=== PATIENT | male | born 1950 | race Caucasian/White ===

== ENCOUNTER 2023-03-30 08:00 | Outpatient (CLI) | payer MEDICARE, OTHER | END 2023-03-30 23:59 | disposition home or self-care (01) | LOC: LAB 08:00 | PROVIDERS: ATTEND Family Medicine | DX: R31.9 Hematuria, unspecified (principal) | CPT/HCPCS: 36415; 80048; 85025; 87086 ==

== ENCOUNTER 2023-03-30 12:00 | Outpatient (CLI) | payer MEDICARE, OTHER ==
[2023-03-30 17:57] LABS: BASOPHILS # (AUTO) 0.1 10^3/uL (0.0-0.1); BASOPHILS % (AUTO) 1.4 %; EOSINOPHILS # (AUTO) 0.2 10^3/uL (0.0-0.7); EOSINOPHILS % (AUTO) 5.1 %; HCT - HEMATOCRIT 42.6 % (42.0-52.0); HGB - HEMOGLOBIN 14.6 g/dL (14.0-18.0); MEAN CORPUSCULAR HEMOGLOBIN 31.5 pg (27.0-31.0); MEAN CORPUSCULAR HGB CONC 34.3 g/dL (32.0-36.0); MEAN CORPUSCULAR VOLUME 91.8 fL (80.0-94.0); MONOCYTES # (AUTO) 0.4 10^3/uL (0.0-1.0); MONOCYTES % (AUTO) 11.6 %; NEUTROPHILS # (AUTO) 1.9 10^3/uL (1.5-6.6); NEUTROPHILS % (AUTO) 52.6 %; PLT - PLATELET COUNT 269 10^3/uL (130-450); RED BLOOD COUNT 4.64 10^6/uL (4.70-6.10); WHITE BLOOD COUNT 3.5 x10^3/uL (4.8-10.8)
[2023-03-30 18:05] LABS: CALCIUM 9.2 mg/dL (8.5-10.3); POTASSIUM 4.3 mmol/L (3.5-4.5)
== END 2023-03-30 12:15 | disposition home or self-care (01) ==
LOC: LAB.N 12:00
PROVIDERS: ATTEND Family Medicine
DX: R31.9 Hematuria, unspecified (principal)
CPT/HCPCS: 36415; 80048; 85025

== ENCOUNTER 2023-04-06 14:35 | Outpatient (CLI) | payer MEDICARE, OTHER ==
[2023-04-06] MEDS ORDERED: iohexoL-300 100 ML VIAL ONE (15:07)
[2023-04-06] MEDS: iohexoL-300 100 ML VIAL IVP ONE (16:04)
--- NOTE | 2023-04-06 17:22 | CT Report ---
PROCEDURE: IVP INDICATIONS: BLOOD IN URINE CONTRAST: 140mL Omni 300 TECHNIQUE: A [address] of the abdomen and pelvis was performed. Non-contrast and contrast images were recorded and evaluated at appropriate window settings. Images were recorded and evaluated at appropriate windo w settings. Reformats: coronal and sagittal. For radiation dose reduction, the following was used: au tomated exposure control, adjustment of convex left scoliosis. 3 interval casting with improved align ment at the tibia and fibula fractures. MA and/or kV according to patient size. COMPARISON: None. FINDINGS: Image quality: Diagnostic. Urinary system: Both kidneys are normal in size. No hydronephrosis or nephrolithiasis on pre-contras t images. No solid masses or complex cysts which require follow up. The opacified renal calyces and ureters appear normal, without filling defect. Bladder wall thickness is normal, accounting for unde rdistention. No calcified bladder stones. Polypoidal mass along the right lateral bladder wall measur ing 3.4 x 2.3 cm. Questionable extension beyond the bladder wall along the posterior margin (series 2 0, image 118).. OTHER Lung bases and heart: Cardiomegaly. Calcified granuloma of the right lower lobe. Liver: Hepatic steatosis. Gallbladder and biliary tree: No radiopaque stones or wall thickening. No biliary dilation. Spleen: No splenomegaly. Pancreas: No pancreatic ductal dilation. Adrenals: No adrenal nodule. Bowel and peritoneum: No bowel distension. No pathologic free fluid. Diverticulosis without evidence of diverticulitis. Abdominal Lymph nodes: No central or retroperitoneal adenopathy. Vessels: Unremarkable. Reproductive organs: Unremarkable. Pelvic Lymph nodes: Unremarkable. Bones: No aggressive osseous abnormality. Bone islands of the right hemipelvis. Right sacroiliac and pubic symphysis arthrodesis. Other: Small right inguinal hernia containing fat. IMPRESSION: Polypoidal mass along the right lateral bladder wall measuring 3.4 x 2.3 cm, with questionable extens ion beyond the bladder wall. No pelvic adenopathy. Reviewed by: Joon Osborne MD on 04/06/2023 5:21 PM PST Approved by: Joon Osborne MD on 04/06/2023 5:21 PM PST Station ID: [id number]
== END 2023-04-06 14:36 | disposition home or self-care (01) ==
LOC: DI 14:35
PROVIDERS: ATTEND Urology
DX: R31.29 Other microscopic hematuria (principal); N32.89 Other specified disorders of bladder
CPT/HCPCS: 74178; Q9967

== ENCOUNTER 2023-04-11 11:55 | Day surgery (SDC) | payer MEDICARE, OTHER ==
[2023-04-11] MEDS ORDERED: ceFAZolin 2 GM VIAL ONE (12:08)
[2023-04-11] MEDS: LACTATED RINGERS 1,000 ML IV ONE ×3 (12:15→16:10)
[2023-04-11] MEDS ORDERED: LIDOCAINE 2% URO-JET 5 ML SYRINGE UR ONE (14:20)
[2023-04-11] MEDS ORDERED: PROPOFOL 200 MG/20 ML VIAL IVP ONE (14:21)
[2023-04-11] MEDS ORDERED: ROCURONIUM 50 MG/5 ML VIAL ONE (14:21)
[2023-04-11] MEDS ORDERED: fentaNYL 100 MCG/2 ML VIAL ONE ×2 (14:21→16:03)
[2023-04-11] MEDS ORDERED: LIDOCAINE-PF 2% 10 ML AMP SUBQ ONE (14:21)
[2023-04-11] MEDS ORDERED: ONDANSETRON 4 MG/2 ML VIAL ONE (14:21)
--- NOTE | 2023-04-11 14:22 | ANESTHESIA ---
Pre-Anesthesia VS, & Labs - Diagnosis hematuria - Procedure TURBT Height: 5 ft 8 in Weight (kg): 78 kg Body Mass Index: 26.1 BMI Classification: Overweight - NPO >8 hours Home Medications and Allergies Home Medications: Ambulatory Orders Bacillus Coagulans [Probiotic] 1 tab PO DAILY 04/11/23 Glucos Sul 2Kcl/MSM/Chond/C/Mn [Glucosamine Chondroitin Cap] 1 tab PO DAILY 04/11/23 Tadalafil [Cialis] 5 mg PO PRN PRN 04/11/23 Telmisartan 20 mg PO DAILY 04/11/23 amLODIPine [Norvasc] 10 mg PO DAILY 04/11/23 Bacillus Coagulans [Probiotic] 1 tab PO DAILY 04/11/23 Glucos Sul 2Kcl/MSM/Chond/C/Mn [Glucosamine Chondroitin Cap] 1 tab PO DAILY 04/11/23 Tadalafil [Cialis] 5 mg PO PRN PRN 04/11/23 Telmisartan 20 mg PO DAILY 04/11/23 amLODIPine [Norvasc] 10 mg PO DAILY 04/11/23 Allergies/Adverse Reactions: Allergies Allergy/AdvReac Type Severity Reaction Status Date / Time No Known Drug Allergies Allergy Verified 04/11/23 12:20 Anes History & Medical History - Anesthetic History Anesthesia Complications: reports: No previous complications - Medical History Cardiovascular: reports: Hypertension Pulmonary: reports: Sleep apnea, CPAP use Gastrointestinal: reports: None Urinary: reports: Retention, Other Musculoskeletal: reports: None Endocrine/Autoimmune: reports: None Skin: reports: None Smoking Status: Never smoker Psychosocial: reports: Alcohol (rare social), Cannabis (occasionally) History of Cancer?: No Exam General: Alert, Oriented x3 Dental: WNL Neck Mobility: Normal Mallampati classification: II Thyromental Distance: greater than 6 cm Respiratory: Lungs clear Cardiovascular: Regular rate, Normal S1, Normal S2 Plan Anesthesia Type: Total IV Consent for Procedure(s) Verified and Reviewed: Yes Code Status: Attempt Resuscitation ASA classification: 2-Mild systemic disease Is this case an emergency?: No
[2023-04-11] MEDS ORDERED: ONDANSETRON 4 MG/2 ML VIAL IVP PRN ×2 (14:25→15:28)
[2023-04-11] MEDS ORDERED: NALOXONE 0.4 MG/ML VIAL IVP PRN (14:25)
[2023-04-11] MEDS ORDERED: MORPHINE 2 MG/ML CARPUJECT IVP PRN (14:25)
[2023-04-11] MEDS ORDERED: ePHEDrine 50 MG/ML VIAL IVP PRN (14:25)
[2023-04-11] MEDS ORDERED: HYDROmorphone 0.5 MG/0.5 ML SYRINGE IVP PRN (14:25)
[2023-04-11] MEDS ORDERED: ATROPINE ABBOJECT 1 MG/10 ML SYRINGE IVP PRN (14:25)
[2023-04-11] MEDS ORDERED: METOCLOPRAMIDE 10 MG/2 ML VIAL IVP PRN (14:25)
[2023-04-11] MEDS: LIDOCAINE 2% URO-JET 5 ML SYRINGE UR ONE (14:27)
[2023-04-11] MEDS: LIDOCAINE-MPF 1% 2 ML AMP SUBQ ONE (14:27)
[2023-04-11] MEDS ORDERED: MIDAZOLAM 2 MG/2 ML VIAL ONE (14:48)
[2023-04-11] MEDS ORDERED: SUGAMMADEX 200 MG/2 ML VIAL IVP ONE (15:24)
--- NOTE | 2023-04-11 15:34 | Discharge Plan ---
Discharge Plan Problem Reviewed?: Yes Disposition: Home, Self Care Condition: Good Prescriptions: Docusate Sodium 100Mg Capsule [Colace 100Mg Capsule] 100 mg PO DAILY #10 cap HYDROcod/ACETAM 5/325 [[place] 5/325] 1 tab PO Q4H PRN #12 tablet PRN Reason: Pain oxyBUTYnin chloride [Oxybutynin Chloride ER] 5 mg PO DAILY #14 tab Diet: Regular Activity Restrictions: Additional Comments (as instructed) Shower Restrictions: No Driving Restrictions: No Instruction Topics: Transureth Bladder Tumor Resect Dc, Catheter Bag Urinary Empty Clean, Leg Bag Care Dc Additional Instructions or Follow Up instructions: Your catheter should remain in place until you see Dr. Andres in the office next week. No Smoking: If you smoke, Please STOP! Call for help. Follow-up with: Srinivasan Andres MD [Provider Admit Priv/Credential] -
--- NOTE | 2023-04-11 15:42 | OPERATIVE REPORT ---
Operative Report - General Procedure Date: 04/11/23 Planned Procedure: Cystoscopy, transurethral resection of bladder tumor Pre-Op Diagnosis: Bladder mass Procedure Performed: Cystoscopy, transurethral resection of bladder tumor >5cm Post Op Diagnosis: Bladder mass - Procedure Note Primary Surgeon: Dmitry Anesthesia Provider: BIANCA Holland Anesthesia Technique: General ET tube Pathology: bladder mass Findings: Large bladder mass about 5 cm in size on the right lateral wall 2 cm lateral to the right ureteral orifice Complications: none - Other Other Information/Narrative: After informed sent was obtained the patient was brought to the OR and laid supine position. The patient was anesthetized per anesthesia protocols and prepped and draped in usual sterile fashion. He is placed in dorsolithotomy p osition. A formal timeout was performed reconfirming the patient and procedure. A 26 [place] tightrope was [place] ease into urinary bladder bladder inspected and full he is noted to have a 5 cm papillary mass arising from the right lateral wall just about 2 cm lateral to ureteral orifice. The ureteral orifice was not involved. Using loop electrocautery on the bipolar setting we resected this mas s in its entirety. Muscle appeared to be adequately sampled. He spot cautery was used for hemostasis. The bladder chips were sent for analysis. A Uro-Jet was placed and 22 Paraguayan three-way Subramanian catheter was placed and he was put on gentle CBI. He was then reversed of anesthesia and brought to PACU without further incident. Counts were correct. We will monitor him in the PACU for short time to see if he can go home versus admit overnight for gentle CBI. He will keep his catheter in place for least 1 week.
[2023-04-11] MEDS: fentaNYL 100 MCG/2 ML VIAL IVP PRN (16:09)
--- NOTE | 2023-04-11 16:22 | ANESTHESIA POST OP EVALUATION ---
Anesthesia Post Eval - Post Anesthesia Eval Vitals: Last Vital Signs Temp 37.0 C 04/11/23 16:15 Pulse 68 04/11/23 16:15 Resp 10 L 04/11/23 16:15 BP 155/74 H 04/11/23 16:15 Pulse Ox 99 04/11/23 16:15 O2 Flow Rate CV Function Including HR & BP: Stable Pain Control: Satisfactory Nausea & Vomiting: Negative Mental Status: Baseline Respiratory Status: Airway Patent Hydration Status: Satisfactory Anesthesia Complications: None
[2023-04-11] MEDS: LACTATED RINGERS 1,000 ML IV SCH (16:55)
[2023-04-11] MEDS: HYDROcod/ACETAM 5/325 MG TABLET PO PRN (17:02)
[2023-04-11] MEDS: cephALEXin 250 MG CAPSULE PO SCH (23:49)
[2023-04-12 06:02] LABS: HCT - HEMATOCRIT 40.4 % (42.0-52.0); HGB - HEMOGLOBIN 14.1 g/dL (14.0-18.0); MEAN CORPUSCULAR HEMOGLOBIN 32.4 pg (27.0-31.0); MEAN CORPUSCULAR HGB CONC 34.9 g/dL (32.0-36.0); MEAN CORPUSCULAR VOLUME 92.9 fL (80.0-94.0); MEAN PLATELET VOLUME 9.6 fL (7.4-11.4); RED BLOOD COUNT 4.35 10^6/uL (4.70-6.10); RED CELL DISTRIBUTION WIDTH 11.7 % (12.0-15.0); WHITE BLOOD COUNT 5.6 x10^3/uL (4.8-10.8)
[2023-04-12 06:30] LABS: CALCIUM 8.4 mg/dL (8.5-10.3); CREATININE 0.8 mg/dL (0.6-1.3); POTASSIUM 4.4 mmol/L (3.5-4.5)
--- NOTE | 2023-04-12 08:59 | PROVIDER PROGRESS NOTE ---
Subjective - General Procedure Date: 04/11/23 Post Op Days: 1 Procedure Performed: TURBT - Review of Systems General: positive: Other (Had a lot of issues with clotting overnight. Required multiple irrigations. At 8 AM this morning the catheter stopped draining completely. He had a lot of distention pain.) Genitourinary: positive: Other (Catheter stopped draining this morning. I was at bedside at 830 and he is balloon was clearly in the prostate. I took down his balloon and advanced the catheter. There was an immediate efflux of david red opaque urine with no clots. This improved his symptoms tremendously. He was irrigated the) Objective - Patient Data Reviewed Vital Signs: Yes Vital Signs: Vital Signs x48h Temp Pulse Resp BP Pulse Ox 04/12/23 06:52 36.9 C 82 16 165/93 H 95 04/12/23 02:36 36.7 C 73 16 136/86 H 93 Weight: Weight 04/10/23 04/11/23 04/12/23 23:59 23:59 23:59 Weight (kg) 78 kg Intake & Output: Intake and Output Totals x24h 04/10/23 04/11/23 04/12/23 23:59 23:59 23:59 Intake Total 50056 58017 Output Total 1161311 84018 Balance -1972 -8546 - Lab Results Lab Results: 04/12/23 05:20 04/12/23 05:20 Other Lab Results: Lab Results x24hrs 04/12/23 04/12/23 Range/Units 05:20 05:20 WBC 5.6 (4.8-10.8) x10^3/uL RBC 4.35 L (4.70-6.10) 10^6/uL Hgb 14.1 (14.0-18.0) g/dL Hct 40.4 L (42.0-52.0) % MCV 92.9 (80.0-94.0) fL MCH 32.4 H (27.0-31.0) pg MCHC 34.9 (32.0-36.0) g/dL RDW 11.7 L (12.0-15.0) % Plt Count 240 (130-450) 10^3/uL MPV 9.6 (7.4-11.4) fL Sodium 138 (135-145) mmol/L Potassium 4.4 (3.5-4.5) mmol/L Chloride 104 (101-111) mmol/L Carbon Dioxide 25 (21-32) mmol/L Anion Gap 9.0 (6-13) BUN 8 (6-20) mg/dL Creatinine 0.8 (0.6-1.3) mg/dL Estimated GFR (MDRD) 94 (>89) Glucose 112 H (74-104) mg/dL Calcium 8.4 L (8.5-10.3) mg/dL - Current Medications Current Medications: Current Medications Generic Name Dose Route Start Last Admin Trade Name Freq PRN Reason Stop Dose Admin Hydrocodone Bitart/Acetaminophen 1 tab 04/11/23 15:28 04/12/23 08:27 Hydrocod/Acetam 5/325 Mg Tablet PO 1 tab Q4HR PRN Administration Moderate Pain (Level 4-6) Cephalexin 500 mg 04/12/23 00:00 04/12/23 06:02 Cephalexin 250 Mg Capsule PO 500 mg Q6HR LATOYA Administration - Physical Exam General Appearance: positive: No acute distress Respiratory: positive: Breath sounds nml Cardiovascular: positive: Regular rate & rhythm Abdomen: positive: Other (after efflux, soft nt abdomen. 22f [address] way catheter with red david opaque urine on cbi) ABX Reporting Has patient been on IV antibiotics over the past 48 hours?: No Impression/Plan - Problem List Problem List: Brady is here postop day 1 after his TURBT. He had a large resection and deep resection. I suspect his tumor is invading through the muscle into the perivesicular fat. After initially a fairly dry appearing CBI, he darken significantly this morning likely related to the catheter being displaced into the prostate. I will put him back on CBI for now and monitor him in a few hours. I will make him n.p.o. for now. I have added him on as a cystoscopy clot evacuation and fulguration in case it still continues to appear bloody. I think this is an optimal plan rather than just continue on CBI for a few days which would also likely dry him up. Patient states understanding and consents to the above plan. We did discuss the risks, benefits, alternatives to this. Specific risks of continued bleeding, infection, damage adjacent structures, need for additional procedures were discussed.
[2023-04-12] MEDS: amLODIPine 5 MG TABLET PO SCH (09:02)
--- NOTE | 2023-04-12 10:54 | PHARMACY PROGRESS NOTE ---
- Best Possible Medication History Admit Date and Time: Processed by: Nursing Medication History completed: Yes Secondary Source(s): Insurance records As the person ultimately responsible for medication therapy, providers are able to order a medication from an existing home medication list in [facility] via the "Reconcile Routine" prior to Confirmation of that medication by clerical and office support workers. Such practice is discouraged except when the physician, in their clinical judgme nt, deems that a medical need exists for a medication without regard to previous use.
[2023-04-12] MEDS ORDERED: LIDOCAINE 2% URO-JET 5 ML SYRINGE UR ONE (11:38)
[2023-04-12] MEDS ORDERED: fentaNYL 100 MCG/2 ML VIAL ONE (12:20)
[2023-04-12] MEDS ORDERED: LIDOCAINE-PF 2% 10 ML AMP SUBQ ONE (12:20)
[2023-04-12] MEDS ORDERED: ROCURONIUM 50 MG/5 ML VIAL ONE (12:20)
[2023-04-12] MEDS ORDERED: ONDANSETRON 4 MG/2 ML VIAL ONE (12:20)
[2023-04-12] MEDS ORDERED: MIDAZOLAM 2 MG/2 ML VIAL ONE (12:20)
[2023-04-12] MEDS ORDERED: PROPOFOL 200 MG/20 ML VIAL IVP ONE (12:20)
[2023-04-12] MEDS ORDERED: DEXAMETHASONE 4 MG/ML VIAL ONE (12:47)
[2023-04-12] MEDS ORDERED: ONDANSETRON 4 MG/2 ML VIAL IVP PRN (12:58)
[2023-04-12] MEDS ORDERED: METOCLOPRAMIDE 10 MG/2 ML VIAL IVP PRN (12:58)
[2023-04-12] MEDS ORDERED: ePHEDrine 50 MG/ML VIAL IVP PRN (12:58)
[2023-04-12] MEDS ORDERED: NALOXONE 0.4 MG/ML VIAL IVP PRN (12:58)
[2023-04-12] MEDS ORDERED: ATROPINE ABBOJECT 1 MG/10 ML SYRINGE IVP PRN (12:58)
[2023-04-12] MEDS ORDERED: fentaNYL 100 MCG/2 ML VIAL IVP PRN (12:58)
[2023-04-12] MEDS ORDERED: MORPHINE 2 MG/ML CARPUJECT IVP PRN (12:58)
[2023-04-12] MEDS ORDERED: HYDROmorphone 0.5 MG/0.5 ML SYRINGE IVP PRN (12:58)
[2023-04-12] MEDS ORDERED: SUGAMMADEX 200 MG/2 ML VIAL IVP ONE (12:59)
[2023-04-12] MEDS ORDERED: LACTATED RINGERS 1,000 ML IV SCH (13:00)
--- NOTE | 2023-04-12 13:03 | ANESTHESIA ---
Pre-Anesthesia VS, & Labs - Diagnosis s/p turbt, bleeding, bladder - Procedure cysto with fulguration Vital Signs: Temp Pulse Resp BP Pulse Ox O2 Flow Rate 36.9 C 82 16 165/93 H 95 04/12/23 06:52 04/12/23 06:52 04/12/23 06:52 04/12/23 06:52 04/12/23 06:52 Height: 5 ft 8 in Weight (kg): 78 kg Body Mass Index: 26.1 BMI Classification: Overweight - NPO >8 hours - Lab Results Current Lab Results: Laboratory Tests 04/12/23 05:20: Sodium 138, Potassium 4.4, Chloride 104, Carbon Dioxide 25, Anion Gap 9.0, BUN 8, Creatinine 0.8, Estimated GFR (MDRD) 94, Glucose 112 H, Calcium 8.4 L 04/12/23 05:20: WBC 5.6, RBC 4.35 L, Hgb 14.1, Hct 40.4 L, MCV 92.9, MCH 32.4 H, MCHC 34.9, RDW 11.7 L, Plt Count 240, MPV 9.6 Fish Bones: 04/12/23 05:20 04/12/23 05:20 Home Medications and Allergies Home Medications: Ambulatory Orders Bacillus Coagulans [Probiotic] 1 tab PO DAILY 04/11/23 Glucos Sul 2Kcl/MSM/Chond/C/Mn [Glucosamine Chondroitin Cap] 1 tab PO DAILY 04/11/23 Tadalafil [Cialis] 5 mg PO PRN PRN 04/11/23 Telmisartan 20 mg PO DAILY 04/11/23 amLODIPine [Norvasc] 10 mg PO DAILY 04/11/23 Active Medications Hydrocodone Bitart/Acetaminophen (Hydrocod/Acetam 5/325 Mg Tablet) 1 tab PO Q4HR PRN PRN Reason: Moderate Pain (Level 4-6) Last Admin: 04/12/23 08:27 Dose: 1 tab Amlodipine Besylate (Amlodipine 5 Mg Tablet) 10 mg PO DAILY LATOYA Atropine Sulfate (Atropine Abboject 1 Mg/10 Ml Syringe) 0.5 mg IVP Q5M PRN PRN Reason: Bradycardia Stop: 04/13/23 12:58 Cephalexin (Cephalexin 250 Mg Capsule) 500 mg PO Q6HR LATOYA Last Admin: 04/12/23 06:02 Dose: 500 mg Ephedrine Sulfate (Ephedrine 50 Mg/Ml Vial) 10 mg IVP Q5M PRN PRN Reason: HYPOTENSION Stop: 04/13/23 12:58 Fentanyl (Fentanyl 100 Mcg/2 Ml Vial) 25 - 50 mcg IVP Q5M PRN PRN Reason: BREAKTHROUGH PAIN (2nd Choice) Stop: 04/13/23 12:58 Hydromorphone HCl (Hydromorphone 0.5 Mg/0.5 Ml Syringe) 0.2 - 0.6 mg IVP Q5M PRN PRN Reason: PAIN (First Choice) Stop: 04/13/23 12:58 Lactated Ringer's (Lr) 1,000 mls @ 100 mls/hr IV .Q10H LATOYA Stop: 04/12/23 22:59 Metoclopramide HCl (Metoclopramide 10 Mg/2 Ml Vial) 10 mg IVP Q6HR PRN PRN Reason: N/V not relieved by Zofran Morphine Sulfate (Morphine 2 Mg/Ml Carpuject) 2 - 4 mg IVP Q5M PRN PRN Reason: PAIN (3rd Choice) Stop: 04/13/23 12:58 Naloxone HCl (Naloxone 0.4 Mg/Ml Vial) 0.1 mg IVP Q2M PRN PRN Reason: RESP RATE <8 Stop: 04/13/23 12:58 Ondansetron HCl (Ondansetron 4 Mg/2 Ml Vial) 4 mg IVP Q6HR PRN PRN Reason: Nausea / Vomiting Ondansetron HCl (Ondansetron 4 Mg/2 Ml Vial) 4 mg IVP ONCE PRN PRN Reason: N/V (First Choice) Stop: 04/13/23 12:58 Bacillus Coagulans [Probiotic] 1 tab PO DAILY 04/11/23 Glucos Sul 2Kcl/MSM/Chond/C/Mn [Glucosamine Chondroitin Cap] 1 tab PO DAILY 04/11/23 Tadalafil [Cialis] 5 mg PO PRN PRN 04/11/23 Telmisartan 20 mg PO DAILY 04/11/23 amLODIPine [Norvasc] 10 mg PO DAILY 04/11/23 Allergies/Adverse Reactions: Allergies Allergy/AdvReac Type Severity Reaction Status Date / Time No Known Drug Allergies Allergy Verified 04/11/23 12:20 Anes History & Medical History - Anesthetic History Anesthesia Complications: reports: No previous complications Family history of Anesthesia Complications: Denies Family history of Malignant Hyperthermia: Denies - Medical History Cardiovascular: reports: Hypertension Pulmonary: reports: Sleep apnea, CPAP use Gastrointestinal: reports: None Urinary: reports: Retention, Other Musculoskeletal: reports: None Endocrine/Autoimmune: reports: None Skin: reports: None Smoking Status: Never smoker Psychosocial: reports: Alcohol (rare social), Cannabis (occasionally) Exam General: Alert, Oriented x3, Cooperative Dental: WNL Mouth Openin Fingerbreadth Neck Mobility: Normal (glidescope intubation required for turbt) Mallampati classification: II Thyromental Distance: 4-6 cm Cardiovascular: Regular rate Neurological: Normal speech Mental/Cognitive Status: Alert/Oriented X3, Normal for patient Cognitive Status: Within normal limits Plan Anesthesia Type: General Consent for Procedure(s) Verified and Reviewed: Yes Code Status: Attempt Resuscitation ASA classification: 2-Mild systemic disease Is this case an emergency?: Yes
[2023-04-12] MEDS: LIDOCAINE 2% URO-JET 5 ML SYRINGE UR ONE (13:09)
--- NOTE | 2023-04-12 13:41 | OPERATIVE REPORT ---
Operative Report - General Procedure Date: 04/12/23 Planned Procedure: Cystoscopy, fulguration of bleeding areas Pre-Op Diagnosis: hematuria Procedure Performed: cystoscopy, clot evacuation, fulguration of bleeding areas Post Op Diagnosis: hematuria - Procedure Note Primary Surgeon: Dmitry Anesthesia Provider: BIANCA spangler Anesthesia Technique: General ET tube Pathology: none Estimated Blood Loss (mL): 20 Indications: Persistent hematuria despite continuous bladder irrigation after TURBT on April 11 Findings: Large bladder clot approximately 200 to 300 cc. No obvious bleeding area. Old resection site appeared intact and any slightly red areas or erythematous areas were cauterized. Put back on CBI Complications: none - Other Other Information/Narrative: After informed consent was obtained the patient was brought to the OR and laid the supine position. At that point time the patient was anesthetized per anesthesia protocols and his old catheter was removed. He was then placed in dorsolithotomy position and prepped and draped in usual sterile fashion. A formal timeout was performed reconfirming the patient and procedure. A 26 Mongolian resectoscope was advanced easily into urinary bladder. He had a large bladder clot in the bladder. Using Ellik evacuator we evacuated about 300 cc of old dark clot. The bladder was then inspected and full and his old resection site on the right lateral bladder wall appeared intact. There were no significant bleeding areas at all. Using loop electrocautery and the bipolar setting we cauterized this old resection site specifically emphasizing the edges and any areas where erythema was seen or perhaps a red area. We then emptied and filled the bladder multiple times to see if there were any bleeding but no bleeding was seen. We then placed new 22 Mongolian three-way Subramanian catheter after placing a Uro-Jet and put him back on CBI. This concluded the procedure. Patient tolerated procedure well. All counts were correct. He will stay overnight for further monitoring
[2023-04-12] MEDS: LACTATED RINGERS 1,000 ML IV ONE (13:42)
[2023-04-12] MEDS: SOLIFENACIN SUCCINATE 5 MG TABLET PO SCH (16:18)
--- NOTE | 2023-04-12 17:54 | ANESTHESIA POST OP EVALUATION ---
Anesthesia Post Eval - Post Anesthesia Eval Vitals: Last Vital Signs Temp 36.5 C 04/12/23 15:10 Pulse 87 04/12/23 15:10 Resp 14 04/12/23 15:10 BP 127/71 04/12/23 15:10 Pulse Ox 93 04/12/23 15:10 O2 Flow Rate CV Function Including HR & BP: Stable Pain Control: Satisfactory Nausea & Vomiting: Negative Mental Status: Baseline Respiratory Status: Airway Patent Hydration Status: Satisfactory Anesthesia Complications: None
[2023-04-13 06:03] LABS: HCT - HEMATOCRIT 35.1 % (42.0-52.0); HGB - HEMOGLOBIN 11.8 g/dL (14.0-18.0); MEAN CORPUSCULAR HEMOGLOBIN 31.4 pg (27.0-31.0); MEAN CORPUSCULAR HGB CONC 33.6 g/dL (32.0-36.0); MEAN CORPUSCULAR VOLUME 93.4 fL (80.0-94.0); RED BLOOD COUNT 3.76 10^6/uL (4.70-6.10); RED CELL DISTRIBUTION WIDTH 11.6 % (12.0-15.0)
[2023-04-13 06:22] LABS: CALCIUM 8.1 mg/dL (8.5-10.3); CREATININE 0.9 mg/dL (0.6-1.3); POTASSIUM 3.9 mmol/L (3.5-4.5)
--- NOTE | 2023-04-13 08:25 | PROVIDER PROGRESS NOTE ---
Subjective - General Procedure Date: 04/12/23 Post Op Days: 1 Procedure Performed: TURBT 04/11/23, clot evac 04/12/23 - Review of Systems Drain Type: vickers Drain Output Description: clear General: positive: No symptoms, Other Genitourinary: positive: Other (Catheter stopped draining this morning. I was at bedside at 830 and he is balloon was clearly in the prostate. I took down his balloon and advanced the catheter. There was an immediate efflux of david red opaque urine with no clots. This improved his symptoms tremendously. He was irrigated the) - Other Other Information/Narrative: He did well overnight. No clot issues. He was evaluated at 8 PM last night and his urine was clear on slow effluent Objective - Patient Data Reviewed Vital Signs: Yes Vital Signs: Vital Signs x48h Temp Pulse Resp BP Pulse Ox 04/13/23 06:40 36.7 C 65 18 141/66 H 98 04/13/23 02:17 36.9 C 72 18 133/61 H 93 Weight: Weight 04/11/23 04/12/23 04/13/23 23:59 23:59 23:59 Weight (kg) 78 kg 78 kg Intake & Output: Intake and Output Totals x24h 04/11/23 04/12/23 04/13/23 23:59 23:59 23:59 Intake Total 68471 85382 4000 Output Total 56108 70698 5250 Balance -4380 -7250 -1250 - Lab Results Lab Results: 04/13/23 05:11 04/13/23 05:11 Other Lab Results: Lab Results x24hrs 04/13/23 04/13/23 Range/Units 05:11 05:11 WBC 6.0 (4.8-10.8) x10^3/uL RBC 3.76 L (4.70-6.10) 10^6/uL Hgb 11.8 L (14.0-18.0) g/dL Hct 35.1 L (42.0-52.0) % MCV 93.4 (80.0-94.0) fL MCH 31.4 H (27.0-31.0) pg MCHC 33.6 (32.0-36.0) g/dL RDW 11.6 L (12.0-15.0) % Plt Count 262 (130-450) 10^3/uL MPV 9.0 (7.4-11.4) fL Sodium 137 (135-145) mmol/L Potassium 3.9 (3.5-4.5) mmol/L Chloride 106 (101-111) mmol/L Carbon Dioxide 27 (21-32) mmol/L Anion Gap 4.0 L (6-13) BUN 12 (6-20) mg/dL Creatinine 0.9 (0.6-1.3) mg/dL Estimated GFR (MDRD) 82 L (>89) Glucose 112 H (74-104) mg/dL Calcium 8.1 L (8.5-10.3) mg/dL - Current Medications Current Medications: Current Medications Generic Name Dose Route Start Last Admin Trade Name Freq PRN Reason Stop Dose Admin Hydrocodone Bitart/Acetaminophen 1 tab 04/11/23 15:28 04/12/23 22:09 Hydrocod/Acetam 5/325 Mg Tablet PO 1 tab Q4HR PRN Administration Moderate Pain (Level 4-6) Amlodipine Besylate 10 mg 04/12/23 09:00 04/12/23 09:02 Amlodipine 5 Mg Tablet PO 10 mg DAILY LATOYA Administration Cephalexin 500 mg 04/12/23 00:00 04/13/23 05:45 Cephalexin 250 Mg Capsule PO 500 mg Q6HR LATOYA Administration Solifenacin 5 mg 04/12/23 16:00 04/12/23 16:18 Solifenacin Succinate 5 Mg Tablet PO 5 mg DAILY LATOYA Administration ABX Reporting Has patient been on IV antibiotics over the past 48 hours?: No Impression/Plan - Problem List Problem List: 73-year-old male with significant hematuria requiring clot evacuation after TURBT. Now doing very well. Home today with catheter. He will follow-up next week for catheter removal and pathology discussion. He has not had a bowel movement so I will send him home with Colace and MiraLAX
--- NOTE | 2023-04-13 08:28 | DISCHARGE SUMMARY ---
"Discharge Summary Admit Date: 04/11/23 Discharge Date: 04/13/23 Discharging Provider: Dmitry Condition at Discharge: Good Discharge Disposition: Home, Self Care - DIAGNOSES Admission Diagnoses: Bladder mass, hematuria - HPI History of Present Illness: 73-year-old male with significant hematuria requiring clot evacuation after TURBT. Now doing very well. Home today with catheter. He will follow-up next week for catheter removal and pathology discussion. He has not had a bowel movement so I will send him home with Colace and MiraLAX - CONSULTS | PROCEDURES Procedures: Transurethral section of bladder tumor April 11, 2023 Cystoscopy, clot evacuation, fulguration of bleeding areas April 12, 2023 - HOSPITAL COURSE Hospital Course: He was admitted after his TURBT for continuous bladder irrigation. There is a large resection and there were areas that were oozy. Overnight he had clotting issues. In the morning his hematuria had not resolved and so it was elected to proceed with a cystoscopy. He was taken the OR on the . At that point in time he was noted to have a large amount of clot still in his bladder about 200 or 300 cc. This was evacuated. His prior resection site was not bleeding but any areas that could possibly ooze were fulgurated. He was kept overnight to monitor on light CBI and did quite well. He was sent home postop day [address] with a catheter in place. He will plan to have the catheter in place for at least 1 week. He will follow-up in [address] Andres for pathology discussion - ALLERGIES Allergies/Adverse Reactions: Allergies Allergy/AdvReac Type Severity Reaction Status Date / Time No Known Drug Allergies Allergy Verified 04/11/23 12:20 - MEDICATIONS Home Medications: Ambulatory Orders Medication Instructions Recorded Confirmed Bacillus Coagulans [Probiotic] 1 tab PO DAILY 04/11/23 04/11/23 Docusate Sodium 100Mg Capsule 100 mg PO DAILY #10 cap 04/11/23 [Colace 100Mg Capsule] Glucos Sul 2Kcl/MSM/Chond/C/Mn 1 tab PO DAILY 04/11/23 04/11/23 [Glucosamine Chondroitin Cap] HYDROcod/ACETAM 5/325 [[place] 5/325] 1 tab PO Q4H PRN #12 tablet 04/11/23 Tadalafil [Cialis] 5 mg PO PRN PRN 04/11/23 04/11/23 Telmisartan 20 mg PO DAILY 04/11/23 04/11/23 amLODIPine [Norvasc] 10 mg PO DAILY 04/11/23 04/11/23 oxyBUTYnin chloride [Oxybutynin 5 mg PO DAILY #14 tab 04/11/23 Chloride ER] polyethylene glycoL 3350(BULK) 17 gm PO DAILY #238 gm 04/13/23 [Miralax] - PHYSICAL EXAM AT DISCHARGE General Appearance: positive: No acute distress Abdomen: positive: Other (vickers in place, clear effluent) - LABS Result Diagrams: 04/13/23 05:11 04/13/23 05:11 - FOLLOW UP Follow Up: He will be contacted for follow-up next week"
[2023-04-13 15:42] VITALS: BP 135/67; O2SAT 95
== END 2023-04-13 12:35 | disposition home or self-care (01) ==
LOC: SDS 11:55 → MS2 16:16 → SDS 04-13 12:35
PROVIDERS: ATTEND Urology
PROC: 0TBB8ZZ Excision of Bladder, Via Natural or Artificial Opening Endoscopic (ICD-10-PCS; principal; 2023-04-11 13:00)
PROC: 0T5B8ZZ Destruction of Bladder, Via Natural or Artificial Opening Endoscopic (ICD-10-PCS; 2023-04-12)
DX: C67.2 Malignant neoplasm of lateral wall of bladder (principal); I10 Essential (primary) hypertension; Z87.891 Personal history of nicotine dependence
CPT/HCPCS: 36415; 52224; 52240; 80048; 85027; A9270; J7120; 51700